=== PATIENT | male | born 1940 ===

== ENCOUNTER 2024-10-29 13:47 | Inpatient (IN) | payer OTHER, MEDICARE ==
[2024-10-30] MEDS: HEPARIN SOD,PORK IN 0.45% NACL 25,000 UNIT in 0.45% NACL 1 250ML.BAG IV SCH (00:14)
[2024-10-30 00:49] LABS: Basophils # (A) 0.06 10*3/uL (0.00-0.10); Basophils % (A) 0.9 %; Eosinophils # (A) 0.03 10*3/uL (0.04-0.35); Eosinophils % (A) 0.5 %; HCT 42.6 % (39.6-50.0); HGB 14.2 g/dL (13.0-17.0); Lymphocytes # (A) 2.88 10*3/uL (0.90-5.00); Lymphocytes % (A) 44.6 %; MCH 31.4 pg (27.0-32.0); MCHC 33.3 g/dL (32.0-37.0); MCV 94.2 fL (80.0-97.0); Mean Platelet Volume 10.1 fL (9.5-12.2); Monocytes # (A) 0.54 10*3/uL (0.20-1.00); Monocytes % (A) 8.4 %; Neutrophils # (A) 2.94 10*3/uL (1.80-7.70); Neutrophils % (A) 45.4 %; Platelet Count 177 10*3/uL (140-440); RBC 4.52 10*6/uL (4.40-5.60); RDW 14.7 % (11.5-14.5); WBC 6.46 10*3/uL (4.50-10.00)
[2024-10-30 01:05] LABS: Partial Thromboplastin Time 34.8 sec (22.0-30.0); Prothrombin Time 11.4 sec (10.0-12.5)
[2024-10-30 01:07] LABS: African American GFR (CKD) 49 (>60 ml/min/1.73 sqM); Anion Gap 7 mmol/L; Blood Urea Nitrogen 46 mg/dL (9-20); Carbon Dioxide 29 mmol/L (22-30); Chloride 95 mmol/L (98-107); Glucose 101 mg/dL (74-99); Non-African American GFR(CKD) 42 (>60 ml/min/1.73 sqM); Potassium 4.5 mmol/L (3.5-5.1); Sodium 131 mmol/L (137-145)
[2024-10-30] MEDS: HEPARIN SODIUM 1,000 UN/ML (10ML VL) IV PRN (01:32)
--- NOTE | 2024-10-30 02:32 | P.HPIM ---
History of Present Illness H&P Date: 10/30/24 Chief Complaint: NSTEMI The patient is a 84-year-old male with history of coronary disease status post [place] patient states in his 40s, diabetes type 2 he states he does not take any medications for this, hypertension who was hospitalized at [facility] on Tuesday because he developed chest pain. The patient states he had a workup there that showed he had a heart attack. The patient's assurance senior manager requested transfer for continuity of care. The patient is currently on a heparin drip. Patient did not arrive with records. The patient denies any chest pain or shortness of luigi th any nausea or vomiting Review of Systems Cardiovascular: Reports chest pain Past Medical History Past Medical History: Cancer, Heart Failure, Diabetes Mellitus, Hearing Disorder / Deafness, Hyperlipidemia, Hypertension, Myocardial Infarction ([place]), Skin Disorder Additional Past Medical History / Comment(s): Skin cancer 70s, leukemia, Last Myocardial Infarction Date:: 10/26/2024 History of Any Multi-Drug Resistant Organisms: None Reported Past Surgical History: Pacemaker Additional Past Surgical History / Comment(s): kidney removal, bladder cancer removed spots, pacer since age 46 Past Anesthesia/Blood Transfusion Reactions: Unable to Obtain Type of Cardiac Device: Unknown Device Placement Date:: 2023 Past Psychological History: No Psychological Hx Reported Smoking Status: Former smoker Past Alcohol Use History: None Reported Past Drug Use History: None Reported Medications and Allergies Allergies Allergy/AdvReac Type Severity Reaction Status Date / Time No Known Allergies Allergy Verified 10/29/24 23:37 Physical Exam Vitals: Vital Signs Temp Pulse Resp BP Pulse Ox 10/30/24 01:22 60 16 10/29/24 23:00 98.6 F 60 16 138/70 95 10/29/24 22:03 98.3 F 65 16 147/75 95 Intake and Output 10/29/24 10/29/24 10/30/24 14:59 22:59 06:59 Intake Total 12.596 Output Total 475 Balance -462.404 Intake: Intake, IV Titration 12.596 Amount Heparin Sod,Pork in 0.45% 12.596 NaCl 25,000 unit In 0.45 % NaCl 1 250ml.bag @ 12 UNITS/KG/HR 9.689 mls/hr IV .Q24H [facility] Rx#: [id number] Output: Urine 475 Other: Voiding Method Indwelling Catheter Weight 80.739 kg - Constitutional General appearance: no acute distress - Respiratory Respiratory: bilateral: diminished, wheezing - Cardiovascular Rhythm: regular - Gastrointestinal General gastrointestinal: normal bowel sounds - Integumentary Integumentary: normal - Musculoskeletal Musculoskeletal: strength equal bilaterally - Psychiatric Psychiatric: A&O x's 3 Results CBC & Chem 7: 10/30/24 00:11 10/30/24 00:11 Labs: Abnormal Lab Results - Last 24 Hours (Table) 10/30/24 10/30/24 10/30/24 Range/Units 00:11 00:11 00:11 Eosinophils # 0.03 L (0.04-0.35) 10*3/uL APTT 34.8 H (22.0-30.0) sec Sodium 131 L (137-145) mmol/L Chloride 95 L (98-107) mmol/L BUN 46 H (9-20) mg/dL Creatinine 1.48 H (0.66-1.25) mg/dL Glucose 101 H (74-99) mg/dL Thrombosis Risk Factor Assmnt - Choose All That Apply Each Factor Represents 1 point: Acute [place] Each Risk Factor Represents 3 Points: Age 75 years or older Thrombosis Risk Factor Assessment Total Risk Factor Score: 4 Thrombosis Risk Factor Assessment Level: Moderate Risk Assessment and Plan (1) NSTEMI (non-ST elevated myocardial infarction) Narrative/Plan: Cardiology consult keep patient n.p.o., morphine oxygen nitro aspirin, continue heparin drip Current Visit: Yes Status: Acute Code(s): I21.4 - NON-ST ELEVATION (NSTEMI) MYOCARDIAL INFARCTION SNOMED Code(s): 22781859 (2) Diabetes Narrative/Plan: Patient states he does not take any medications for his diabetes, sliding scale coverage Current Visit: Yes Status: Acute Code(s): E11.9 - TYPE 2 DIABETES MELLITUS WITHOUT COMPLICATIONS SNOMED Code(s): 51474400 (3) HTN (hypertension) Narrative/Plan: Continue heparin tension meds once med list is obtained, titrate as needed Current Visit: Yes Status: Acute Code(s): I10 - ESSENTIAL (PRIMARY) HYPER TENSION SNOMED Code(s): 57794847 (4) HLD (hyperlipidemia) Narrative/Plan: Check lipid panel, statin as needed Current Visit: Yes Status: Acute Code(s): E78.5 - HYPERLIPIDEMIA, UNSPECIFIED SNOMED Code(s): 69789725 Plan: Obtain records from prior hospital, home meds reconciled once obtained,, pain control, heparin drip, morphine oxygen nitro aspirin, monitor on telemetry
[2024-10-30] MEDS: ASPIRIN 81 MG PO SCH (08:10)
[2024-10-30] MEDS: FUROSEMIDE 10 MG/ML 4 ML VIAL IV SCH (08:10)
[2024-10-30] MEDS ORDERED: DEXTROSE 50% SYRINGE 50 ML IVP PRN ×2 (08:41)
--- NOTE | 2024-10-30 09:41 | XR ---
EXAMINATION TYPE: XR chest 1V portable DATE OF EXAM: 10/30/2024 9:09 AM COMPARISON: None CLINICAL INDICATION: Male, 84 years old with history of NSTEMI,; TECHNIQUE: XR chest 1V portable Frontal view of the chest. FINDINGS: Lungs/Pleura: There is no evidence of pleural effusion, focal consolidation, or pneumothorax. Pulmonary vascularity: Mild pulmonary vascular congestion. Heart/mediastinum: Cardiomediastinal silhouette is unremarkable. Two lead cardiac conduction device o verlying the right hemithorax with lead tips projecting over the right ventricle and right atrium. Musculoskeletal: No acute osseous pathology. Other findings: None IMPRESSION: Mild pulmonary edema, otherwise No acute cardiopulmonary disease/process. [facility], , 10/30/2024 9:38 AM
[2024-10-30] MEDS ORDERED: ARTIFICIAL TEARS OINTMENT 3.5 GM TUBE BOTH EYES PRN (11:00)
[2024-10-30 11:06] LABS: Glucose,Whole Blood 110 mg/dL (70-110)
[2024-10-30] MEDS: INSULIN LISPRO (HumaLOG) 100 UNIT/ML 10 mL VL SQ SCH (11:08)
--- NOTE | 2024-10-30 11:11 | P.PN ---
Subjective Progress Note Date: 10/30/24 Hospital course: Patient is a pleasant 84-year-old male with a past medical history of CAD, hypertension, hyperlipidemia, type 2 diabetes mellitus, bladder cancer status post surgical partial removal/tumor resection, BPH and leukemia. Patient was transferred to our facility from [facility] secondary to concerns of NSTEMI. Patient arrived to our facility on heparin infusion however transfer records were not available at time of arrival. Upon arrival to our facility, patient was transferred to room 359. Vital signs on arrival show blood pressure 147/75, heart rate 65, respiratory rate 16, temp 98.3 F, and SpO2 of 95% on 3 L. Labs were completed and reviewed. CBC unremarkable. Coagulation profile showing a subtherapeutic PTT of 34.8 with goal therapeutic range of 45 to 79 seconds. BMP showing sodium of 131, chloride of 95, BUN 46, creatinine 1.48, and GFR 42. Blood glucose was 101.Troponin 2.340. proBNP 7310. EKG completed showing sinus bradycardia at 54 bpm. Chest x-ray completed showing mild pulmonary edema. Patient admitted under our services with consultation to cardiology. Physical exam: Patient seen and evaluated at the bedside. He reports he initially presented to [facility] secondary to shortness of breath. Patient reports that shortness of breath has significantly improved. He denies having any chest pain, palpitations, cough or congestion, or experiencing any numbness/tingling/weakness in his extremities. Patient does have Bennett catheter in place from previous facility secondary to longstanding history of urinary retention and need for accurate I's and O's. Vital signs reviewed and stable. General: Nontoxic, no distress and appears stated age. Derm: Skin warm and dry, normal coloration for ethnicity. Head: Atraumatic, normocephalic and symmetric. Eyes: EOM's intact, no lid lag, and anicteric sclera Mouth: no lip lesions, mucus membranes moist Cardiovascular: regular rate and rhythm with normal S1S2, soft systolic murmur, positive posterior tibial pulses bilaterally, and cap refill < 2 seconds. Lungs: Respirations even, regular, and unlabored on 2 L O2 via nasal cannula. Lungs slightly diminished breath soft basilar crackles worse on left, no rhonchi, no rales, no wheezing, and no accessory muscle usage. Abdominal: soft, nontender to palpation, no guarding, no appreciable organomegaly. Bennett catheter in place Ext: ROM intact. No gross muscle atrophy, scant lower extremity edema, no contractures Neuro: Speech clear, face symmetrical and CN II-XII grossly intact with no noted focal neuro deficits Psych: Alert and oriented to person, place, time, and situation. Appropriate and pleasant affect. Assessment and Plan of Care: NSTEMI Mild CHF exacerbation, unknown type pending completion of echocardiogram CAD Hypertension Hyperlipidemia -Cardiology consulted, appreciate recommendations -Telemetry monitoring -Continue low intensity heparin infusion with close monitoring of PTT every 6 hours for goal therapeutic range of 45 to 79 seconds. - Troponin 2.340. proBNP 7310 -Cardiac diet, NPO at midnight -Aspirin 81 mg daily, atorvastatin 40 mg nightly, amlodipine 2.5 mg daily, metoprolol 12.5 mg twice daily with parameters placed to hold for heart rate less than 60. -Lipid profile with a.m. labs. -Echocardiogram Acute kidney injury, possible underlying chronic kidney disease - Patient requiring IV Lasix, Cardiology also starting patient on gentle IV fluids with 0.9% NS at 100 cc/hour. We will monitor renal function closely with repeat AM labs and avoid additional nephrotoxic medications. Type II ohu-gizkyja-odmjneoru diabetes mellitus -Patient reports diet controlled, currently blood glucose 101. Will place patient on glycemic protocol with NovoLog sliding scale. Bladder cancer status post surgical partial remover/tumor resection BPH -Continue Proscar 5 mg nightly and Flomax 0.8 mg nightly. Data and imaging reviewed: -Troponin 2.340. proBNP 7310. EKG completed showing sinus bradycardia at 54 bpm. -Chest x-ray was ordered and completed showing mild pulmonary edema. -Vital signs reviewed. Blood pressure 108/57, heart rate 51, respiratory rate 16, temp 97.9 F, and SpO2 of 97% on 2 L. CODE STATUS: Full code DVT prophylaxis: Heparin infusion for treatment of NSTEMI Discussed with: Patient and RN Anticipated discharge date: Pending clinical course Anticipated discharge place: Pending clinical course, likely home Patient was seen independently by Nurse Pracitioner. This document was prepared using [employer] dictation software. Please allow for errors in senior planning analyst, while rare they do occur. Rainer Grace NP rendered care for this patient independently, reviewed the findings and plan as documented in the note above and agree with plan. I did not physically speak with or examine the patient on this date. Objective - Vital Signs Vital signs: Vital Signs Temp 97.9 F 10/30/24 07:56 Pulse 51 L 10/30/24 07:56 Resp 16 10/30/24 07:56 BP 108/57 10/30/24 07:56 Pulse Ox 97 10/30/24 07:56 FiO2 Intake & Output 10/29/24 10/30/24 10/30/24 18:59 06:59 18:59 Intake Total 12.596 Output Total 475 Balance -462.404 Weight 74 kg Intake: Intake, IV Titration 12.596 Amount Heparin Sod,Pork in 0.45% 12.596 NaCl 25,000 unit In 0.45 % NaCl 1 250ml.bag @ 12 UNITS/KG/HR 9.689 mls/hr IV .Q24H [facility] Rx#: [id number] Output: Urine 475 Other: Voiding Method Indwelling Catheter - Labs CBC & Chem 7: 10/30/24 00:11 10/30/24 00:11 Labs: Abnormal Lab Results - Last 24 Hours (Table) 10/30/24 10/30/24 10/30/24 Range/Units 00:11 00:11 00:11 Eosinophils # 0.03 L (0.04-0.35) 10*3/uL APTT 34.8 H (22.0-30.0) sec Sodium 131 L (137-145) mmol/L Chloride 95 L (98-107) mmol/L BUN 46 H (9-20) mg/dL Creatinine 1.48 H (0.66-1.25) mg/dL Glucose 101 H (74-99) mg/dL 10/30/24 Range/Units 06:45 Eosinophils # (0.04-0.35) 10*3/uL APTT 58.2 H (22.0-30.0) sec Sodium (137-145) mmol/L Chloride (98-107) mmol/L BUN (9-20) mg/dL Creatinine (0.66-1.25) mg/dL Glucose (74-99) mg/dL
[2024-10-30] MEDS ORDERED: SODIUM CHLORIDE 0.9% 1,000 ML IV SCH (11:15)
[2024-10-30] MEDS: SODIUM CHLORIDE 0.9% 1,000 ML IV SCH (11:27)
--- NOTE | 2024-10-30 12:56 | P.CRDCN ---
History of Present Illness Consult date: 10/30/24 Requesting physician: Kacey Walker Reason for Consult (text): elevated troponins Chief complaint: Chest pain History of present illness: Patient is a 84 year old male with past medical history of diabetes mellitus, hyperlipidemia, hypertension presented with chest pain. Patient was hospitalized at [facility] on Tuesday with chest pain. Patient then had workup that showed hs-cTnT of 176 and he was transferred to our facility secondary to concerns of NSTEMI. The patient's bark scaler requested transfer for continuity of care. Patient had echocardiogram done at [facility] on 10/27/24 that showed left ventricular systolic function is normal with EF 50 to 55%, left ventricular diastolic function is normal, mildly dilated right atrium, moderate aortic stenosis with mean gradient 21 mm Hg, mild MR, mild TR, mild pulmonary hypertension, small pericardial effusion near the right side of the heart, pacemaker visualized in the right ventricle. Patient also had a CT angio chest that did not show evidence of pulmonary embolism, no aortic aneurysm or dissection, showed diffuse lymphadenopathy which is nonspecific to the degree of lymphadenopathy may suggest a more systemic process such as lymphoma/lymphoproliferative disorder in the appropriate setting, it also showed vascular congestion and infectious superimposed airspace disease cannot be completely excluded. Patient has sick sinus syndrome and has a permanent pacemaker that was checked at the last office visit on 09/04/24 and was functioning normally. Patient had a Lexiscan stress test on 08/15/24 that showed normal myocardial perfusion and function and echocardiogram on 08/13/24 that showed normal LV systolic function with moderate to severe aortic stenosis, mild aortic regurgitation and mild to moderate mitral regurgitation. Denies fever, chills, cough, palpitations,nausea, vomiting, hematuria, dysuria, hematochezia, melena, headache, slurred speech, numbness, tingling, dizziness, lightheadedness, blurred vision, double vision. Vitals T 97.9 F, [place] 57 bpm, RR 20, BP 108/59, saturation 93% on 2 L oxygen via nasal cannula EKG independently interpreted as sinus bradycardia, rate 54 bpm, QTc 406 ms Chest x-ray shows no acute cardiopulmonary disease/process Labs show WBC 6.46, hemoglobin 14.2, platelet count 177, INR 1.0, sodium 131, potassium 4.5, creatinine 1.48 Troponin I 2.340 Review of systems: Pertinent positives and negatives as discussed in HPI, a complete review of systems was performed and all other systems are negative. Physical examination: Vital signs reviewed GENERAL: This is a 84 -year-old male in no acute distress HEENT: Head is atraumatic, normocephalic. Pupils equal, round. Sclerae is anicteric NECK: Supple, No JVD, No carotid bruit LUNGS: Clear to auscultation, No wheezes or rhonchi, No intercostal retractions HEART: Regular rate and rhythm, no murmur or gallop or rub ABDOMEN: Soft No tenderness EXTREMITIES: Left shoulder tenderness, No pedal edema, No calf tenderness. NEUROLOGICAL: Patient is awake and alert Assessment: NSTEMI Sick sinus syndrome S/p permanent pacemaker placement Nonrheumatic Aortic valve stenosis Congestive Heart Failure, EF 50-55% Hypertension Diabetes mellitus Hyperlipidemia History of CLL Left renal carcinoma S/p nephrectomy Bladder cancer status post surgical partial remover/tumor resection BPH Plan: Continue heparin drip Obtain Echocardiogram, lipid panel Decrease Lasix to 40 mg IV daily Resume home cardiac medications Started on 0.9 normal saline at 100 ml/hr Continue telemetry monitoring Dictation was produced using [employer] dictation software. please excuse any grammatical, word or spelling errors. Temitope Claire MD PGY-1 IM Past Medical History Past Medical History: Cancer, Heart Failure, Diabetes Mellitus, Hearing Disorder / Deafness, Hyperlipidemia, Hypertension, Myocardial Infarction ([place]), Skin Disorder Additional Past Medical History / Comment(s): Skin cancer 70s, leukemia, Last Myocardial Infarction Date:: 10/26/2024 History of Any Multi-Drug Resistant Organisms: None Reported Past Surgical History: Pacemaker Additional Past Surgical History / Comment(s): kidney removal, bladder cancer removed spots, pacer since age 46 Past Anesthesia/Blood Transfusion Reactions: Unable to Obtain Type of Cardiac Device: Unknown Device Placement Date:: 2023 Past Psychological History: No Psychological Hx Reported Smoking Status: Former smoker Past Alcohol Use History: None Reported Past Drug Use History: None Reported Medications and Allergies Home Medications Medication Instructions Recorded Confirmed Type Aspirin 81 mg PO DAILY 10/30/24 10/30/24 History Cyanocobalamin (Vitamin B-12) 1,000 mcg PO DAILY 10/30/24 10/30/24 History [Vitamin B-12] Finasteride [Proscar] 5 mg PO HS 10/30/24 10/30/24 History Metoprolol Tartrate [Lopressor] 12.5 mg PO BID 10/30/24 10/30/24 History Mineral Oil/Petrolatum,White 1 applic BOTH EYES BID PRN 10/30/24 10/30/24 History [Refresh P.m. Ointment P-F] Rosuvastatin [Crestor] 10 mg PO DAILY 10/30/24 10/30/24 History Tamsulosin HCl [Flomax] 0.8 mg PO HS 10/30/24 10/30/24 History Tiotropium Br/Olodaterol HCl 2 puff INHALATION RT-DAILY 10/30/24 10/30/24 Hi story [Stiolto Respimat Inhaler (60)] amLODIPine [Norvasc] 2.5 mg PO DAILY 10/30/24 10/30/24 History Allergies Allergy/AdvReac Type Severity Reaction Status Date / Time No Known Allergies Allergy Verified 10/30/24 08:22 Physical Exam Vitals: Vital Signs Temp Pulse Resp BP Pulse Ox 10/30/24 11:25 57 L 20 108/59 93 L 10/30/24 07:56 97.9 F 51 L 16 108/57 97 10/30/24 03:31 98.3 F 59 L 16 118/64 97 10/30/24 01:22 60 16 10/29/24 23:00 98.6 F 60 16 138/70 95 10/29/24 22:03 98.3 F 65 16 147/75 95 Intake and Output 10/29/24 10/30/24 10/30/24 22:59 06:59 14:59 Intake Total 12.596 Output Total 475 1900 Balance -462.404 -1900 Intake: Intake, IV Titration 12.596 Amount Heparin Sod,Pork in 0.45% 12.596 NaCl 25,000 unit In 0.45 % NaCl 1 250ml.bag @ 12 UNITS/KG/HR 9.689 mls/hr IV .Q24H [facility] Rx#: [id number] Output: Urine 475 1900 Other: Voiding Method Indwelling Catheter Indwelling Catheter Weight 80.739 kg 74 kg Results 10/30/24 00:11 10/30/24 00:11 Cardiac Enzymes 10/30/24 Range/Units 00:11 Troponin I 2.340 H* (0.000-0.034) ng/mL Coagulation 10/30/24 10/30/24 Range/Units 00:11 06:45 PT 11.4 (10.0-12.5) sec APTT 34.8 H 58.2 H (22.0-30.0) sec CBC 10/30/24 Range/Units 00:11 WBC 6.46 (4.50-10.00) 10*3/uL RBC 4.52 (4.40-5.60) 10*6/uL Hgb 14.2 (13.0-17.0) g/dL Hct 42.6 (39.6-50.0) % Plt Count 177 (140-440) 10*3/uL Comprehensive Metabolic Panel 10/30/24 Range/Units 00:11 Sodium 131 L (137-145) mmol/L Potassium 4.5 (3.5-5.1) mmol/L Chloride 95 L (98-107) mmol/L Carbon Dioxide 29 (22-30) mmol/L BUN 46 H (9-20) mg/dL Creatinine 1.48 H (0.66-1.25) mg/dL Glucose 101 H (74-99) mg/dL Calcium 9.0 (8.4-10.2) mg/dL Current Medications Generic Name Dose Route Start Last Admin Trade Name Freq PRN Reason Stop Dose Admin Albuterol/Ipratropium 3 ml 10/30/24 05:45 Ipratropium-Albuterol 3 Ml Neb INHALATION RT-Q4H PRN Shortness Of Breath Or Wheezing Amlodipine Besylate 2.5 mg 10/31/24 09:00 Amlodipine 2.5 Mg Tab PO DAILY LEONARDO Aspirin 81 mg 10/30/24 09:00 10/30/24 08:10 Aspirin 81 Mg PO 81 mg DAILY LEONARDO Administration Atorvastatin Calcium 40 mg 10/30/24 21:00 Atorvastatin 40 Mg Tab PO HS LEONARDO Dextrose/Water 25 ml 10/30/24 08:41 Dextrose 50% Syringe 50 Ml IVP PER PROTOCOL PRN Hypoglycemia Protocol Dextrose/Water 50 ml 10/30/24 08:41 Dextrose 50% Syringe 50 Ml IVP PER PROTOCOL PRN Hypoglycemia Protocol Finasteride 5 mg 10/30/24 21:00 Finasteride 5 Mg Tab PO HS LEONARDO Formoterol Fumarate 20 mcg 10/30/24 20:00 Formoterol Fumarate 20 Mcg/2 Ml Nebu INHALATION RT-BID [facility] Furosemide 40 mg 10/31/24 09:00 Furosemide 10 Mg/Ml 4 Ml Vial IV DAILY [facility] Heparin Sodium (Porcine) 0 unit 10/29/24 23:46 10/30/24 01:32 Heparin Sodium 1,000 Un/Ml (10ml Vl) IV 2,018 unit PER PROTOCOL PRN Administration Low PTT Protocol Heparin Sodium/Sodium Chloride 250 mls @ 9.689 mls/hr 10/29/24 23:45 10/30/24 01:32 25,000 unit/ Sodium Chloride IV 14 units/kg/hr .Q24H LEONARDO 11.303 mls/hr Titration Protocol 12 UNITS/KG/HR Sodium Chloride 1,000 mls @ 100 mls/hr 10/30/24 10:15 10/30/24 11:27 Saline 0.9% IV 100 mls/hr .Q10H LEONARDO Administration Insulin Human Lispro 0 unit 10/30/24 12:30 10/30/24 11:08 Insulin Lispro (Humalog) 100 Unit/Ml 10 Ml Vl SQ Not Given ACHS [facility] Protocol Metoprolol Tartrate 12.5 mg 10/30/24 21:00 Metoprolol Tartrate 12.5 Mg Tab PO BID [facility] Multi-Ingred Cream/Lotion/Oil/Oint 1 applic 10/30/24 11:00 Artificial Tears Ointment 3.5 Gm Tube BOTH EYES BID PRN DRY EYES Tamsulosin HCl 0.8 mg 10/30/24 21:00 Tamsulosin 0.4 Mg Cap.Er.24h PO HS [facility] Tiotropium [place] 2 puff 10/30/24 12:00 Tiotropium 2.5 Mcg Inhaler INHALATION RT-DAILY [facility] Intake and Output 10/29/24 10/30/24 10/30/24 22:59 06:59 14:59 Intake Total 12.596 Output Total 475 1900 Balance -462.404 -1900 Intake: Intake, IV Titration 12.596 Amount Heparin Sod,Pork in 0.45% 12.596 NaCl 25,000 unit In 0.45 % NaCl 1 250ml.bag @ 12 UNITS/KG/HR 9.689 mls/hr IV .Q24H [facility] Rx#: [id number] Output: Urine 475 1900 Other: Voiding Method Indwelling Catheter Indwelling Catheter Weight 80.739 kg 74 kg 10/30/24 00:11 10/30/24 00:11
[2024-10-30 16:32] LABS: Glucose,Whole Blood 183 mg/dL (70-110)
[2024-10-30] MEDS: TIOTROPIUM 2.5 MCG INHALER INHALATION SCH (16:41)
[2024-10-30 19:57] LABS: Glucose,Whole Blood 136 mg/dL (70-110)
[2024-10-30] MEDS: METOPROLOL TARTRATE 12.5 MG TAB PO SCH (20:05)
[2024-10-30] MEDS: ATORVASTATIN 40 MG TAB PO SCH (20:05)
[2024-10-30] MEDS: FINASTERIDE 5 MG TAB PO SCH (20:05)
[2024-10-30] MEDS: TAMSULOSIN 0.4 MG CAP.ER.24H PO SCH (20:05)
[2024-10-30] MEDS: FORMOTEROL FUMARATE 20 MCG/2 ML NEBU INHALATION SCH (21:35)
[2024-10-31 06:09] LABS: Glucose,Whole Blood 118 mg/dL (70-110)
[2024-10-31 07:03] LABS: HCT 36.6 % (39.6-50.0); HGB 12.3 g/dL (13.0-17.0); MCH 31.3 pg (27.0-32.0); MCHC 33.6 g/dL (32.0-37.0); MCV 93.1 fL (80.0-97.0); Mean Platelet Volume 9.6 fL (9.5-12.2); Platelet Count 147 10*3/uL (140-440); RBC 3.93 10*6/uL (4.40-5.60); RDW 14.9 % (11.5-14.5)
--- NOTE | 2024-10-31 07:09 | CA ---
Transthoracic Echo Report Name: Arnie Navarro Age: 84 Gender: M : 1940 Exam Date: 10/30/2024 13:49 Exam Location: [place] [facility] Ht (in): 71 Wt (lb): 163 Ordering Physician: Rainer Grace Attending/Referring Phys: Lead Applications Developer Teressa Alves RDCS Procedure CPT: Indications: nstemi Cardiac Hx: Technical Quality: Good Contrast 1: Total Dose (mL): Contrast 2: Total Dose (mL): MEASUREMENTS (Male / Female) Normal Values 2D ECHO LV Diastolic Diameter PLAX 3.5 cm 4.2 - 5.9 / 3.9 - 5.3 cm LV Systolic Diameter PLAX 2.6 cm IVS Diastolic Thickness 1.0 cm 0.6 - 1.0 / 0.6 - 0.9 cm LVPW Diastolic Thickness 0.9 cm 0.6 - 1.0 / 0.6 - 0.9 cm LV Relative Wall Thickness 0.5 LVOT Diameter 1.8 cm LV Diastolic Volume MOD BP 101.6 cm??? 67 - 155 / 56 - 104 cm??? LV Systolic Volume MOD BP 41.8 cm??? 22 - 58 / 19 - 49 cm??? LV Ejection Fraction MOD BP 58.9 % >= 55 % LV Cardiac Index MOD BP 1740.6 cm???/min???m??? LV Diastolic Volume MOD 4C 104.9 cm??? LV Systolic Volume MOD 4C 47.4 cm??? LV Ejection Fraction MOD 4C 54.8 % LV Cardiac Index MOD 4C 1671.1 cm???/min???m??? LV Diastolic Length 4C 8.8 cm LV Systolic Length 4C 7.4 cm LV Diastolic Volume MOD 2C 93.6 cm??? LV Systolic Volume MOD 2C 36.0 cm??? LV Ejection Fraction MOD 2C 61.6 % LV Cardiac Index MOD 2C 1676.3 cm???/min???m??? LV Diastolic Length 2C 9.3 cm LV Systolic Length 2C 7.1 cm LA Volume 51.0 cm??? 18 - 58 / 22 - 52 cm??? LA Volume Index 26.5 cm???/m??? 16 - 28 cm???/m??? DOPPLER AV Peak Velocity 306.5 cm/s AV Peak Gradient 37.6 mmHg AV Mean Velocity 211.3 cm/s AV Mean Gradient 19.9 mmHg AV Velocity Time Integral 61.9 cm LVOT Peak Velocity 111.3 cm/s LVOT Peak Gradient 5.0 mmHg LVOT Velocity Time Integral 20.8 cm LVOT Stroke Volume 51.3 cm??? LVOT Stroke Volume Index 26.5 ml/m??? LVOT Cardiac Index 1493.0 cm???/min???m??? AV Area Cont Eq vti 0.8 cm??? AV Area Cont Eq pk 0.9 cm??? MV Area PHT 3.0 cm??? Mitral E Point Velocity 69.9 cm/s Mitral A Point Velocity 87.6 cm/s Mitral E to A Ratio 0.8 MV Deceleration Time 249.4 ms TR Peak Velocity 232.7 cm/s TR Peak Gradient 21.7 mmHg Right Atrial Pressure 5.0 mmHg Pulmonary Artery Systolic Pressu 26.7 mmHg Right Ventricular Systolic Press 26.7 mmHg PV Peak Velocity 112.2 cm/s PV Peak Gradient 5.0 mmHg FINDINGS Left Ventricle Left ventricular ejection fraction is estimated at 55-60 %. Left ventricular cavity size normal. Left ventricular wall thickness normal. No obvious regional wall motion abnormalities. Right Ventricle Normal right ventricular size and function. Right ventricular systolic pressure within normal limits. Right Atrium Normal right atrial size. Catheter/pacemaker wire in the right atrial cavity. Left Atrium Normal left atrial size. Mitral Valve Mitral valve thickened. No evidence for mitral valve prolapse. No mitral stenosis. Mild mitral regurgitation.mitral annular calcification. Aortic Valve Aortic valve not well visualized. Moderate aortic stenosis. Mean gradient poor doppler alignment and acoustic windows. No aortic regurgitation. Tricuspid Valve Structurally normal tricuspid valve. No tricuspid stenosis. Mild tricuspid regurgitation. Pulmonic Valve No pulmonic stenosis. No pulmonic regurgitation.pulmonic valve not well visualized. Pericardium No pericardial effusion. Aorta Aortic annulus normal. Ascending aorta not well visualized. CONCLUSIONS Technically difficult study. Normal left ventricular size and systolic function Moderate aortic stenosis with a mean gradient of 21 mmHg Mild mitral and tricuspid regurgitation A wire was noted in the right ventricle Previewed by: Dr. Aleja Morris MD (Electronically Signed) Final Date: 31 October 2024 07:08
[2024-10-31 07:58] LABS: ALT 46 U/L (4-49); AST 61 U/L (17-59); African American GFR (CKD) 59 (>60 ml/min/1.73 sqM); Albumin 2.8 g/dL (3.5-5.0); Alkaline Phosphatase 116 U/L (38-126); Anion Gap 5 mmol/L; Blood Urea Nitrogen 40 mg/dL (9-20); Calcium 8.6 mg/dL (8.4-10.2); Carbon Dioxide 27 mmol/L (22-30); Chloride 103 mmol/L (98-107); Glucose 106 mg/dL (74-99); Non-African American GFR(CKD) 51 (>60 ml/min/1.73 sqM); Sodium 135 mmol/L (137-145); Total Bilirubin 1.2 mg/dL (0.2-1.3); Total Protein 5.6 g/dL (6.3-8.2)
[2024-10-31] MEDS ORDERED: NON FORMULARY DRUG (Tiotropium Br/Olodaterol Hcl [Stiolto Respimat Inhaler (60)] 4 GM Mist INHALATION SCH (08:00)
[2024-10-31] MEDS: FUROSEMIDE 10 MG/ML 4 ML VIAL IV SCH (08:59)
[2024-10-31] MEDS: amLODIPine 2.5 MG TAB PO SCH (08:59)
[2024-10-31] MEDS ORDERED: ALPRAZolam 0.25 MG TAB PO PRN (09:24)
[2024-10-31] MEDS ORDERED: ALPRAZolam 0.5 MG TAB PO PRN (09:24)
[2024-10-31] MEDS ORDERED: NITROGLYCERIN SL TABS 0.4 MG TAB SUBLINGUAL PRN (09:24)
[2024-10-31 10:34] LABS: Chol/HDL Ratio 3.97 Ratio; LDL Cholesterol,Calculated 56.6 mg/dL (0.0-131.0)
[2024-10-31 11:36] LABS: Glucose,Whole Blood 127 mg/dL (70-110)
--- NOTE | 2024-10-31 12:42 | P.PN ---
Subjective Progress Note Date: 10/31/24 Hospital course: Patient is a pleasant 84-year-old male with a past medical history of CAD, sick sinus syndrome status post pacemaker placement, hypertension, hyperlipidemia, type 2 diabetes mellitus, bladder cancer status post surgical partial removal/tumor resection, BPH and leukemia. Patient was transferred to our facility from [facility] secondary to concerns of NSTEMI. Patient arrived to our facility on heparin infusion however transfer records were not available at time of arrival. Upon arrival to our facility, patient was transferred to room 359. Vital signs on arrival show blood pressure 147/75, heart rate 65, respiratory rate 16, temp 98.3 F, and SpO2 of 95% on 3 L. Labs were completed and reviewed. CBC unremarkable. Coagulation profile showing a subtherapeutic PTT of 34.8 with goal therapeutic range of 45 to 79 seconds. BMP showing sodium of 131, chloride of 95, BUN 46, creatinine 1.48, and GFR 42. Blood glucose was 101.Troponin 2.340. proBNP 7310. EKG completed showing sinus bradycardia at 54 bpm. Chest x-ray completed showing mild pulmonary edema. Patient admitted under our services with consultation to cardiology.Echocardiogram revealed a preserved EF of 55 to 60% with moderate aortic stenosis, mild mitral and t ricuspid regurgitation, and pacer wire appropriately in place in right ventricle. Physical exam: Patient seen and evaluated at the bedside. Patient reports feeling well this morning. He reports improvement of shortness of breath and currently denies having any chest pain or complaints. Discussed with patient that cardiology's tentative plan is for cardiac catheterization tomorrow and patient reports understanding and denies having any additional questions, needs, concerns at this time.. Vital signs reviewed and stable. General: Nontoxic, no distress and appears stated age. Derm: Skin warm and dry, normal coloration for ethnicity. Head: Atraumatic, normocephalic and symmetric. Eyes: EOM's intact, no lid lag, and anicteric sclera Mouth: no lip lesions, mucus membranes moist Cardiovascular: regular rate and rhythm with normal S1S2, soft systolic murmur, positive posterior tibial pulses bilaterally, and cap refill < 2 seconds. Lungs: Respirations even, regular, and unlabored on 2 L O2 via nasal cannula. Lungs slightly diminished breath soft basilar crackles worse on left, no rhonchi, no rales, no wheezing, and no accessory muscle usage. Abdominal: soft, nontender to palpation, no guarding, no appreciable org anomegaly. Bennett catheter in place Ext: ROM intact. No gross muscle atrophy, scant lower extremity edema, no contractures Neuro: Speech clear, face symmetrical and CN II-XII grossly intact with no noted focal neuro deficits Psych: Alert and oriented to person, place, time, and situation. Appropriate and pleasant affect. Assessment and Plan of Care: NSTEMI Mild diastolic CHF exacerbation Sick sinus syndrome status post pacemaker placement CAD Hypertension Hyperlipidemia -Cardiology following and discussed plan of care with cardiac POST DOC FELLOWSHIP. Patient to undergo heart catheterization tomorrow. -Telemetry monitoring -Continue low intensity heparin infusion with close monitoring of PTT every 6 hours for goal therapeutic range of 45 to 79 seconds. Currently therapeutic at 51.1 -Continue IV Lasix 40 mg IVP daily with close monitoring of I's and O's. -Troponin 2.340. proBNP 7310 -Cardiac diet, NPO at midnight -Aspirin 81 mg daily, atorvastatin 40 mg nightly, amlodipine 2.5 mg daily, metoprolol 12.5 mg twice daily with parameters placed to hold for heart rate less than 60. -Lipid profile with a.m. labs. -Echocardiogram revealed a preserved EF of 55 to 60% with moderate aortic stenosis, mild mitral and tricuspid regurgitation, and pacer wire appropriately in place in right ventricle. Acute kidney injury, possible underlying chronic kidney disease - Patient requiring IV Lasix, Cardiology also starting patient on gentle IV fluids with 0.9% NS at 100 cc/hour. We will monitor renal function closely with repeat AM labs and avoid additional nephrotoxic medications. Type II [id number] diabetes mellitus -Hemoglobin A1c 5.8%. Bladder cancer status post surgical partial remover/tumor resection BPH -Continue Proscar 5 mg nightly and Flomax 0.8 mg nightly. Data and imaging reviewed: -Morning labs reviewed. CBC showing stable normocytic anemia with hemoglobin of 12.3. PTT therapeutic at 51.1. BMP showing improvement of hyponatremia with sodium of 135 and improvement of RAKESH with BUN of 40, creatinine 1.26, GFR 51. Blood glucose was 106. Hemoglobin A1c 5.8%. Liver profile showing slightly elevated AST of 61 otherwise normal findings. Albumin was low at 2.8. Lipid profile unremarkable with the exception of low HDL of 28.20. -Echocardiogram revealed a preserved EF of 55 to 60% with moderate aortic stenosis, mild mitral and tricuspid regurgitation, and pacer wire appropriately in place in right ventricle. -Vital signs reviewed. Blood pressure 119/69, heart rate 63, respiratory rate 16, temp 97.5 F, and SpO2 of 95% on 2 L. CODE STATUS: Full code DVT prophylaxis: Heparin infusion for treatment of NSTEMI Discussed with: Patient, cardiology POST DOC FELLOWSHIP and RN Anticipated discharge date: Pending clinical course Anticipated discharge place: Pending clinical course, likely home Patient was seen independently by Nurse Pracitioner. This document was prepared using [employer] dictation software. Please allow for errors in due diligence coordinator, while rare they do occur. Rainer Grace NP rendered care for this patient independently, reviewed the findings and plan as documented in the note above and agree with plan. I did not physically speak with or examine the patient on this date. Objective - Vital Signs Vital signs: Vital Signs Temp 98.0 F 10/31/24 04:00 Pulse 54 L 10/31/24 04:00 Resp 19 10/31/24 04:00 BP 111/64 10/31/24 04:00 Pulse Ox 93 L 10/31/24 04:00 FiO2 Intake & Output 10/30/24 10/31/24 10/31/24 18:59 06:59 18:59 Intake Total 360 210.236 Output Total 2800 900 Balance -2440 -689.764 Weight 73.6 kg Intake: Intake, IV Titration 210.236 Amount Heparin Sod,Pork in 0.45% 210.236 NaCl 25,000 unit In 0.45 % NaCl 1 250ml.bag @ 12 UNITS/KG/HR 9.689 mls/hr IV .Q24H [facility] Rx#: [id number] Oral 360 Output: Urine 2800 900 Other: Voiding Method Indwelling Catheter Indwelling Catheter # Voids 1 - Labs CBC & Chem 7: 10/31/24 06:16 10/31/24 06:16 Labs: Abnormal Lab Results - Last 24 Hours (Table) 10/30/24 10/30/24 10/30/24 Range/Units 00:11 16:30 19:55 RBC (4.40-5.60) 10*6/uL Hgb (13.0-17.0) g/dL Hct (39.6-50.0) % APTT (22.0-30.0) sec Sodium (137-145) mmol/L BUN (9-20) mg/dL Creatinine (0.66-1.25) mg/dL Glucose (74-99) mg/dL POC Glucose (mg/dL) 183 H 136 H (70-110) mg/dL AST (17-59) U/L Troponin I 2.340 H* (0.000-0.034) ng/mL Total Protein (6.3-8.2) g/dL Albumin (3.5-5.0) g/dL 10/31/24 10/31/24 10/31/24 Range/Units 06:08 06:16 06:16 RBC 3.93 L (4.40-5.60) 10*6/uL Hgb 12.3 L (13.0-17.0) g/dL Hct 36.6 L (39.6-50.0) % APTT (22.0-30.0) sec Sodium 135 L (137-145) mmol/L BUN 40 H (9-20) mg/dL Creatinine 1.26 H (0.66-1.25) mg/dL Glucose 106 H (74-99) mg/dL POC Glucose (mg/dL) 118 H (70-110) mg/dL AST 61 H (17-59) U/L Troponin I (0.000-0.034) ng/mL Total Protein 5.6 L (6.3-8.2) g/dL Albumin 2.8 L (3.5-5.0) g/dL 10/31/24 Range/Units 06:16 RBC (4.40-5.60) 10*6/uL Hgb (13.0-17.0) g/dL Hct (39.6-50.0) % APTT 51.1 H (22.0-30.0) sec Sodium (137-145) mmol/L BUN (9-20) mg/dL Creatinine (0.66-1.25) mg/dL Glucose (74-99) mg/dL POC Glucose (mg/dL) (70-110) mg/dL AST (17-59) U/L Troponin I (0.000-0.034) ng/mL Total Protein (6.3-8.2) g/dL Albumin (3.5-5.0) g/dL
--- NOTE | 2024-10-31 13:42 | P.PN ---
Subjective Progress Note Date: 10/31/24 Requesting physician: Kcaey Walker Reason for Consult (text): elevated troponins Chief complaint: Chest pain History of present illness: Patient is a 84 year old male with past medical history of diabetes mellitus, hyperlipidemia, hypertension presented with chest pain. Patient was hospitalized at [facility] on Tuesday with chest pain. Patient then had workup that showed hs-cTnT of 176 and he was transferred to our facility secondary to concerns of NSTEMI. 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 Patient had echocardiogram done at [facility] on 10/27/24 that showed left ventricular systolic function is normal with EF 50 to 55%, left ventricular diastolic function is normal, mildly dilated right atrium, moderate aortic stenosis with mean gradient 21 mm Hg, mild MR, mild TR, mild pulmonary hypertension, small pericardial effusion near the right side of the heart, pacemaker visualized in the right ventricle. Patient also had a CT angio chest that did not show evidence of pulmonary embolism, no aortic aneurysm or dissection, showed diffuse lymphadenopathy which is nonspecific to the degree of lymphadenopathy may suggest a more systemic process such as lymphoma/lymphoproliferative disorder in the appropriate setting, it also showed vascular congestion and infectious superimposed airspace disease cannot be completely excluded. Patient has sick sinus syndrome and has a permanent pacemaker that was checked at the last office visit on 09/04/24 and was functioning normally. Patient had a Lexiscan stress test on 08/15/24 that showed normal myocardial perfusion and function and echocardiogram on 08/13/24 that showed normal LV systolic function with moderate to severe aortic stenosis, mild aortic regurgitation and mild to moderate mitral regurgitation. Denies fever, chills, cough, palpitations,nausea, vomiting, hematuria, dysuria, hematochezia, melena, headache, slurred speech, numbness, tingling, dizziness, lightheadedness, blurred vision, double vision. Vitals T 97.9 F, TX 57 bpm, RR 20, BP 108/59, saturation 93% on 2 L oxygen via nasal cannula EKG independently interpreted as sinus bradycardia, rate 54 bpm, QTc 406 ms Chest x-ray shows no acute cardiopulmonary disease/process Labs show WBC 6.46, hemoglobin 14.2, platelet count 177, INR 1.0, sodium 131, potassium 4.5, creatinine 1.48 Troponin I 2.340 10/31 Patient seen and examined. Patient has been maintained on heparin drip. Renal function is improving with BUN of 40 and creatinine 1.26. We decreased IV Lasix to daily and started him on IV fluids at 100 cc/h in preparation for cardiac catheterization. Blood pressure 119/69, heart rate 63, pulse ox 95% on 2 L nasal cannula. Echocardiogram reveals EF of 55-60, technically difficult study. Moderate aortic stenosis with mean gradient of 21 mmHg. Mild mitral and tricuspid regurgitation. Wire noted in the right ventricle. Physical examination: Vital signs reviewed GENERAL: This is a 84 -year-old male in no acute distress HEENT: Head is atraumatic, normocephalic. Pupils equal, round. Sclerae is anicteric NECK: Supple, No JVD, No carotid bruit LUNGS: Clear to auscultation, No wheezes or rhonchi, No intercostal retractions HEART: Regular rate and rhythm, no murmur or gallop or rub ABDOMEN: Soft No tenderness EXTREMITIES: Left shoulder tenderness, No pedal edema, No calf tenderness. NEUROLOGICAL: Patient is awake and alert Assessment: NSTEMI Sick sinus syndrome S/p permanent pacemaker placement Nonrheumatic Aortic valve stenosis Congestive Heart Failure, EF 50-55% Hypertension Diabetes mellitus Hyperlipidemia History of CLL Left renal carcinoma S/p nephrectomy Bladder cancer status post surgical partial remover/tumor resection BPH Plan: Continue heparin drip Continue Lasix to 40 mg IV daily Resume home cardiac medications Continue 0.9 normal saline at 100 ml/hr Continue telemetry monitoring Repeat BMP early tomorrow morning Schedule patient for cardiac catheterization at 7:[address] Thomson as long as creatinine is improving. Nurse practitioner note has been reviewed, I agree with documented findings and plan of care. Patient was seen and examined. Objective - Vital Signs Vital signs: Vital Signs Temp 98.0 F 10/31/24 04:00 Pulse 78 10/31/24 09:26 Resp 19 10/31/24 04:00 BP 111/64 10/31/24 04:00 Pulse Ox 94 L 10/31/24 09:28 FiO2 Intake & Output 10/30/24 10/31/24 10/31/24 18:59 06:59 18:59 Intake Total 360 210.236 Output Total 2800 900 Balance -2440 -689.764 Weight 73.6 kg Intake: Intake, IV Titration 210.236 Amount Heparin Sod,Pork in 0.45% 210.236 NaCl 25,000 unit In 0.45 % NaCl 1 250ml.bag @ 12 UNITS/KG/HR 9.689 mls/hr IV .Q24H [facility] Rx#: [id number] Oral 360 Output: Urine 2800 900 Other: Voiding Method Indwelling Catheter Indwelling Catheter # Voids 1 - Labs CBC & Chem 7: 10/31/24 06:16 10/31/24 06:16 Labs: Abnormal Lab Results - Last 24 Hours (Table) 10/30/24 10/30/24 10/31/24 Range/Units 16:30 19:55 06:08 RBC (4.40-5.60) 10*6/uL Hgb (13.0-17.0) g/dL Hct (39.6-50.0) % APTT (22.0-30.0) sec Sodium (137-145) mmol/L BUN (9-20) mg/dL Creatinine (0.66-1.25) mg/dL Glucose (74-99) mg/dL POC Glucose (mg/dL) 183 H 136 H 118 H (70-110) mg/dL AST (17-59) U/L Total Protein (6.3-8.2) g/dL Albumin (3.5-5.0) g/dL 10/31/24 10/31/24 10/31/24 Range/Units 06:16 06:16 06:16 RBC 3.93 L (4.40-5.60) 10*6/uL Hgb 12.3 L (13.0-17.0) g/dL Hct 36.6 L (39.6-50.0) % APTT 51.1 H (22.0-30.0) sec Sodium 135 L (137-145) mmol/L BUN 40 H (9-20) mg/dL Creatinine 1.26 H (0.66-1.25) mg/dL Glucose 106 H (74-99) mg/dL POC Glucose (mg/dL) (70-110) mg/dL AST 61 H (17-59) U/L Total Protein 5.6 L (6.3-8.2) g/dL Albumin 2.8 L (3.5-5.0) g/dL
[2024-10-31 16:37] LABS: Glucose,Whole Blood 141 mg/dL (70-110)
[2024-10-31 20:13] LABS: Glucose,Whole Blood 135 mg/dL (70-110)
[2024-11-01] MEDS: ASPIRIN 325 MG TAB PO ONE (05:11)
[2024-11-01] MEDS: ATORVASTATIN 80 MG TAB PO ONE (05:12)
[2024-11-01 05:58] LABS: HCT 37.1 % (39.6-50.0); HGB 12.5 g/dL (13.0-17.0); MCH 31.6 pg (27.0-32.0); MCHC 33.7 g/dL (32.0-37.0); MCV 93.7 fL (80.0-97.0); Platelet Count 160 10*3/uL (140-440); RBC 3.96 10*6/uL (4.40-5.60); RDW 14.8 % (11.5-14.5); WBC 7.97 10*3/uL (4.50-10.00)
[2024-11-01 06:13] LABS: Glucose,Whole Blood 101 mg/dL (70-110)
[2024-11-01 06:48] LABS: African American GFR (CKD) 53 (>60 ml/min/1.73 sqM); Anion Gap 7 mmol/L; Blood Urea Nitrogen 38 mg/dL (9-20); Calcium 8.6 mg/dL (8.4-10.2); Carbon Dioxide 26 mmol/L (22-30); Chloride 101 mmol/L (98-107); Glucose 98 mg/dL (74-99); Magnesium 1.9 mg/dL (1.6-2.3); Non-African American GFR(CKD) 46 (>60 ml/min/1.73 sqM); Sodium 134 mmol/L (137-145)
[2024-11-01 06:55] LABS: Band Neutrophils % 6 %; Lymphocytes # (M) 5.26 k/uL (1.0-4.8); Neutrophils # (M) 2.31 k/uL (1.3-7.7); Neutrophils % (M) 23 %; Nucleated Red Blood Cells 0 /100 WBC (0-0); Total Cells Counted 100
[2024-11-01] MEDS: IV FLUID CONTINUATION 1,000 ML IV ONE (07:52)
[2024-11-01] MEDS: fentaNYL (PF) 50 MCG/ML 2 ML AMP IVP ONE (07:59)
[2024-11-01] MEDS: LIDOCAINE 1% INJ 10MG/ML (20 ML MDV) SQ ONE (07:59)
[2024-11-01] MEDS: MIDAZOLAM 2 MG/2 ML VIAL IVP ONE (08:00)
[2024-11-01] MEDS: HEPARIN SODIUM,PORCINE 10,000 UNIT in SODIUM CHLORIDE 0.9% 1,000 ML IRRIGATION PRN (08:01)
[2024-11-01] MEDS: HEPARIN SODIUM,PORCINE (1 ML) 2,500 UNIT in SODIUM CHLORIDE 0.9% 250 ML IRRIGATION PRN (08:01)
[2024-11-01] MEDS: VERAPAMIL SYRINGE (5 MG/10 ML) INTRAARTER ONE (08:09)
[2024-11-01] MEDS: IOPAMIDOL-370 100ML BTL INJ ONE (08:15)
[2024-11-01] MEDS: PANTOPRAZOLE 40 MG/10 ML VIAL IVP SCH (08:41)
[2024-11-01 11:43] LABS: Glucose,Whole Blood 141 mg/dL (70-110)
--- NOTE | 2024-11-01 12:51 | P.PN ---
Subjective Progress Note Date: 11/01/24 Hospital course: Patient is a pleasant 84-year-old male with a past medical history of CAD, sick sinus syndrome status post pacemaker placement, hypertension, hyperlipidemia, type 2 diabetes mellitus, bladder cancer status post surgical partial removal/tumor resection, BPH and leukemia. Patient was transferred to our facility from [facility] secondary to concerns of NSTEMI. Patient arrived to our facility on heparin infusion however transfer records were not available at time of arrival. Upon arrival to our facility, patient was transferred to room 359. Vital signs on arrival show blood pressure 147/75, heart rate 65, respiratory rate 16, temp 98.3 F, and SpO2 of 95% on 3 L. Labs were completed and reviewed. CBC unremarkable. Coagulation profile showing a subtherapeutic PTT of 34.8 with goal therapeutic range of 45 to 79 seconds. BMP showing sodium of 131, chloride of 95, BUN 46, creatinine 1.48, and GFR 42. Blood glucose was 101.Troponin 2.340. proBNP 7310. EKG completed showing sinus bradycardia at 54 bpm. Chest x-ray completed showing mild pulmonary edema. Patient admitted under our services with consultation to cardiology.Echocardiogram revealed a preserved EF of 55 to 60% with moderate aortic stenosis, mild mitral and t ricuspid regurgitation, and pacer wire appropriately in place in right ventricle. Physical exam: Patient seen and evaluated at the bedside. Patient reports feeling well this morning. He reports improvement of shortness of breath and currently denies having any chest pain or additional complaints at this time. TR band in place to right wrist, mild bruising noted beneath but no active bleeding. Vital signs reviewed and stable. General: Nontoxic, no distress and appears stated age. Derm: Skin warm and dry, normal coloration for ethnicity. Head: Atraumatic, normocephalic and symmetric. Eyes: EOM's intact, no lid lag, and anicteric sclera Mouth: no lip lesions, mucus membranes moist Cardiovascular: regular rate and rhythm with normal S1S2, soft systolic murmur, positive posterior tibial pulses bilaterally, and cap refill < 2 seconds. Lungs: Respirations even, regular, and unlabored on 2 L O2 via nasal cannula. Lungs slightly diminished breath soft basilar crackles worse on left, no rhonchi, no rales, no wheezing, and no accessory muscle usage. Abdominal: soft, nontender to palpation, no guarding, no appreciable organomegaly. Bennett catheter in place Ext: ROM intact. No gross muscle atrophy, scant lower extremity edema, no contractures Neuro: Speech clear, face symmetrical and CN II-XII grossly intact with no noted focal neuro deficits Psych: Alert and oriented to person, place, time, and situation. Appropriate and pleasant affect. Assessment and Plan of Care: NSTEMI Mild diastolic CHF exacerbation Melanotic stool x 1 episode Sick sinus syndrome status post pacemaker placement CAD Hypertension Hyperlipidemia -Cardiology following and discussed plan of care with cardiac EVENT LIGHTING SPECIALIST and tomography technologist. Patient underwent heart catheterization this morning, no stent placed. Discussed with cardiology we will monitor patient an additional 24 hours with plans for discharge tomorrow morning if hemoglobin remains stable. -Telemetry monitoring -Heparin infusion was discontinued this morning after patient reported 1 episode of melanotic stool. Fecal occult was completed positive. Hemoglobin currently stable at 12.5. Will repeat hemoglobin this evening and again tomorrow morning. -Continue IV Lasix 40 mg IVP daily with close monitoring of I's and O's. -Troponin 2.340. proBNP 7310 -Cardiac diet, NPO at midnight -Aspirin 81 mg daily, atorvastatin 40 mg nightly, amlodipine 2.5 mg daily, metoprolol 12.5 mg twice daily with parameters placed to hold for heart rate less than 60. -Lipid profile with a.m. labs. -Echocardiogram revealed a preserved EF of 55 to 60% with moderate aortic stenosis, mild mitral and tricuspid regurgitation, and pacer wire appropriately in place in right ventricle. Acute kidney injury, possible underlying chronic kidney disease - Patient requiring IV Lasix, Cardiology also continuing patient on gentle IV fluids with 0.9% NS at 100 cc/hour. We will monitor renal function closely with repeat AM labs and avoid additional nephrotoxic medications. Type II zuo-ywtbsft-loysymymb diabetes mellitus -Hemoglobin A1c 5.8%. Bladder cancer status post surgical partial remover/tumor resection BPH -Continue Proscar 5 mg nightly and Flomax 0.8 mg nightly. Continue Bennett catheter pending follow-up outpatient with urology. Data and imaging reviewed: -Morning labs reviewed. CBC showing stable normocytic anemia with hemoglobin of 12.5. BMP showing BUN of 38, creatinine 1.39, GFR 46. Blood glucose was 98. Magnesium 1.9. Fecal occult was positive -Echocardiogram revealed a preserved EF of 55 to 60% with moderate aortic stenosis, mild mitral and tricuspid regurgitation, and pacer wire appropriately in place in right ventricle. -Vital signs reviewed. 118/72, heart rate 57, respiratory rate 16, temp 97.9 F, and SpO2 of 94% on room air CODE STATUS: Full code DVT prophylaxis: SCDs Discussed with: Patient, cardiology EVENT LIGHTING SPECIALIST, tomography technologist and RN Anticipated discharge date: Pending clinical course, likely tomorrow if hemoglobin stable. Anticipated discharge place: Pending clinical course, likely home Patient was seen independently by Nurse Pracitioner. This document was prepared using [employer] dictation software. Please allow for errors in mobile heavy equipment mechanic, while rare they do occur. Rainer Grace, GIDEON rendered care for this patient independently, reviewed the findings and plan as documented in the note above and agree with plan. I did not physically speak with or examine the patient on this date. Objective - Vital Signs Vital signs: Vital Signs Temp 97.8 F 11/01/24 08:06 Pulse 58 L 11/01/24 04:00 Resp 16 11/01/24 08:06 BP 101/57 11/01/24 08:06 Pulse Ox 92 L 11/01/24 08:06 FiO2 Intake & Output 10/31/24 11/01/24 11/01/24 18:59 06:59 18:59 Intake Total 610 240 100 Output Total 3450 800 Balance -2840 -560 100 Weight 73.8 kg Intake: IV 100 Intake, IV Titration 250 Amount Heparin Sod,Pork in 0.45% 250 NaCl 25,000 unit In 0.45 % NaCl 1 250ml.bag @ 12 UNITS/KG/HR 9.689 mls/hr IV .Q24H [facility] Rx#: [id number] Oral 360 240 Output: Urine 3450 800 Other: Voiding Method Indwelling Catheter Indwelling Catheter # Bowel Movements 1 - Labs CBC & Chem 7: 11/01/24 05:30 11/01/24 05:30 Labs: Abnormal Lab Results - Last 24 Hours (Table) 10/31/24 10/31/24 10/31/24 Range/Units 06:16 11:35 16:36 RBC (4.40-5.60) 10*6/uL Hgb (13.0-17.0) g/dL Hct (39.6-50.0) % Lymphocytes # (Manual) (1.0-4.8) k/uL Sodium (137-145) mmol/L BUN (9-20) mg/dL Creatinine (0.66-1.25) mg/dL POC Glucose (mg/dL) 127 H 141 H (70-110) mg/dL HDL Cholesterol 28.20 L (40.00-60.00) mg/dL 10/31/24 11/01/24 11/01/24 Range/Units 20:11 05:30 05:30 RBC 3.96 L (4.40-5.60) 10*6/uL Hgb 12.5 L (13.0-17.0) g/dL Hct 37.1 L (39.6-50.0) % Lymphocytes # (Manual) 5.26 H (1.0-4.8) k/uL Sodium 134 L (137-145) mmol/L BUN 38 H (9-20) mg/dL Creatinine 1.39 H (0.66-1.25) mg/dL POC Glucose (mg/dL) 135 H (70-110) mg/dL HDL Cholesterol (40.00-60.00) mg/dL
--- NOTE | 2024-11-01 13:40 | P.PN ---
Subjective Progress Note Date: 11/01/24 Requesting physician: Kacey Walker Reason for Consult (text): elevated troponins Chief complaint: Chest pain History of present illness: Patient is a 84 year old male with past medical history of diabetes mellitus, hyperlipidemia, hypertension presented with chest pain. Patient was hospitalized at [facility] on Tuesday with chest pain. Patient then had workup that showed hs-cTnT of 176 and he was transferred to our facility secondary to concerns of NSTEMI. The patient's slide fastener repairer requested transfer for continuity of care. Patient had echocardiogram done at [facility] on 10/27/24 that showed left ventricular systolic function is normal with EF 50 to 55%, left ventricular diastolic function is normal, mildly dilated right atrium, moderate aortic stenosis with mean gradient 21 mm Hg, mild MR, mild TR, mild pulmonary hypertension, small pericardial effusion near the right side of the heart, pacemaker visualized in the right ventricle. Patient also had a CT angio chest that did not show evidence of pulmonary embolism, no aortic aneurysm or dissection, showed diffuse lymphadenopathy which is nonspecific to the degree of lymphadenopathy may suggest a more systemic process such as lymphoma/lymphoproliferative disorder in the appropriate setting, it also showed vascular congestion and infectious superimposed airspace disease cannot be completely excluded. Patient has sick sinus syndrome and has a permanent pacemaker that was checked at the last office visit on 09/04/24 and was functioning normally. Patient had a Lexiscan stress test on 08/15/24 that showed normal myocardial perfusion and function and echocardiogram on 08/13/24 that showed normal LV systolic function with moderate to severe aortic stenosis, mild aortic regurgitation and mild to moderate mitral regurgitation. Denies fever, chills, cough, palpitations,nausea, vomiting, hematuria, dysuria, hematochezia, melena, headache, slurred speech, numbness, tingling, dizziness, lightheadedness, blurred vision, double vision. Vitals T 97.9 F, TN 57 bpm, RR 20, BP 108/59, saturation 93% on 2 L oxygen via nasal cannula EKG independently interpreted as sinus bradycardia, rate 54 bpm, QTc 406 ms Chest x-ray shows no acute cardiopulmonary disease/process Labs show WBC 6.46, hemoglobin 14.2, platelet count 177, INR 1.0, sodium 131, potassium 4.5, creatinine 1.48 Troponin I 2.340 10/31 Patient seen and examined. Patient has been maintained on heparin drip. Renal function is improving with BUN of 40 and creatinine 1.26. We decreased IV Lasix to daily and started him on IV fluids at 100 cc/h in preparation for cardiac catheterization. Blood pressure 119/69, heart rate 63, pulse ox 95% on 2 L nasal cannula. Echocardiogram reveals EF of 55-60, technically difficult study. Moderate aortic stenosis with mean gradient of 21 mmHg. Mild mitral and tricuspid regurgitation. Wire noted in the right ventricle. 11/01 Patient seen and examined. This morning, patient underwent left heart catheterization with Dr. Larry. Patient only had mild coronary artery disease with no obstructive disease. Plan is for patient to continue aspirin and statin. Patient's blood pressure is on the low side and Imdur will not be started. Patient was apparently taken off heparin because he had a stool for occult blood positive. He is scheduled for follow-up treatment for bladder cancer tomorrow which has been suggested to postpone until next week. Blood pressure 101/57, heart rate 58, pulse ox 92% on 2 L nasal cannula. Lab work today reveals hemoglobin 12.5, BUN 38 creatinine 1.39. Physical examination: Vital signs reviewed GENERAL: This is a 84 -year-old male in no acute distress HEENT: Head is atraumatic, normocephalic. Pupils equal, round. Sclerae is anicteric NECK: Supple, No JVD, No carotid bruit LUNGS: Clear to auscultation, No wheezes or rhonchi, No intercostal retractions HEART: Regular rate and rhythm, no murmur or gallop or rub ABDOMEN: Soft No tenderness EXTREMITIES: Left shoulder tenderness, No pedal edema, No calf tenderness. NEUROLOGICAL: Patient is awake and alert Assessment: NSTEMI Sick sinus syndrome S/p permanent pacemaker placement Nonrheumatic Aortic valve stenosis Congestive Heart Failure, EF 50-55% Hypertension Diabetes mellitus Hyperlipidemia History of CLL Left renal carcinoma S/p nephrectomy Bladder cancer status post surgical partial remover/tumor resection BPH Plan: Continue patient on aspirin 81 mg daily, atorvastatin 40 mg at bedtime, Lopressor 12.5 mg twice daily Continue patient on IV Lasix 40 mg daily Monitor KIRILL, daily weights, electrolytes and renal function Plan to monitor patient overnight and discharge home tomorrow Hold on starting patient on Imdur due to hypotension. Nurse practitioner note has been reviewed, I agree with documented findings and plan of care. Patient was seen and examined. Objective - Vital Signs Vital signs: Vital Signs Temp 97.9 F 11/01/24 11:41 Pulse 57 L 11/01/24 11:41 Resp 16 11/01/24 11:41 BP 118/72 11/01/24 11:41 Pulse Ox 94 L 11/01/24 11:41 FiO2 Intake & Output 10/31/24 11/01/24 11/01/24 18:59 06:59 18:59 Intake Total 610 240 441 Output Total 3450 800 1400 Balance -3646 -557 -058 Weight 73.8 kg Intake: IV 201 Intake, IV Titration 250 Amount Heparin Sod,Pork in 0.45% 250 NaCl 25,000 unit In 0.45 % NaCl 1 250ml.bag @ 12 UNITS/KG/HR 9.689 mls/hr IV .Q24H [facility] Rx#: [id number] Oral 360 240 240 Output: Urine 3450 800 1400 Other: Voiding Method Indwelling Catheter Indwelling Catheter Indwelling Catheter # Bowel Movements 1 - Labs CBC & Chem 7: 11/01/24 05:30 11/01/24 05:30 Labs: Abnormal Lab Results - Last 24 Hours (Table) 10/31/24 10/31/24 11/01/24 Range/Units 16:36 20:11 05:30 RBC 3.96 L (4.40-5.60) 10*6/uL Hgb 12.5 L (13.0-17.0) g/dL Hct 37.1 L (39.6-50.0) % Lymphocytes # (Manual) 5.26 H (1.0-4.8) k/uL Sodium (137-145) mmol/L BUN (9-20) mg/dL Creatinine (0.66-1.25) mg/dL POC Glucose (mg/dL) 141 H 135 H (70-110) mg/dL 11/01/24 11/01/24 Range/Units 05:30 11:42 RBC (4.40-5.60) 10*6/uL Hgb (13.0-17.0) g/dL Hct (39.6-50.0) % Lymphocytes # (Manual) (1.0-4.8) k/uL Sodium 134 L (137-145) mmol/L BUN 38 H (9-20) mg/dL Creatinine 1.39 H (0.66-1.25) mg/dL POC Glucose (mg/dL) 141 H (70-110) mg/dL
[2024-11-01 16:20] LABS: Glucose,Whole Blood 113 mg/dL (70-110)
[2024-11-01 18:37] LABS: HCT 42.1 % (39.6-50.0); HGB 13.9 g/dL (13.0-17.0); MCH 31.7 pg (27.0-32.0); MCV 95.9 fL (80.0-97.0); Mean Platelet Volume 10.2 fL (9.5-12.2); Platelet Count 193 10*3/uL (140-440); RBC 4.39 10*6/uL (4.40-5.60); RDW 14.9 % (11.5-14.5); WBC 11.68 10*3/uL (4.50-10.00)
[2024-11-01 20:03] LABS: Glucose,Whole Blood 123 mg/dL (70-110)
--- NOTE | 2024-11-01 20:29 | CC ---
CARDIAC CATHETERIZATION REPORT INDICATION: Acute tdp-HA-klbdoah elevation GA. PROCEDURE NOTE: After obtaining informed consent, left heart catheterization and coronary angiogram were performed via the right radial artery using standard Jesus Manuel catheters. The patient tolerated the procedure well without any obvious immediate complications. A TR band will be used for hemostasis. Total sedation time was 20 minutes. Right radial artery access was obtained using Seldinger technique. A 6-Sinhala sheath was placed. Catheters and wires were floated into the ascending aorta under fluoroscopic guidance. The patient tolerated the procedure well without any obvious immediate complications. FINDINGS: 1. Hemodynamics: Left ventricular end-diastolic pressure is 10 to 12 mm. There is no significant gradient across the aortic valve. 2. Left ventriculogram: Left ventriculogram is not performed. 3. Angiographic data: a.Right coronary artery: Right coronary artery is a large dominant vessel that shows mild nonobstructive disease. Left main coronary artery appears calcified but is free of significant stenosis. Divides into left anterior descending coronary artery and circumflex coronary artery. LAD shows mild nonobstructive plaque as does the circ. CONCLUSIONS: Mild nonobstructive disease. PLAN: The patient's management is going to be in the form of optimal medical therapy and risk factor modification. MMODL / IJN: [id number] /
[2024-11-02 06:07] LABS: Glucose,Whole Blood 112 mg/dL (70-110)
[2024-11-02 06:36] LABS: HCT 35.3 % (39.6-50.0); HGB 11.6 g/dL (13.0-17.0); MCH 30.8 pg (27.0-32.0); MCHC 32.9 g/dL (32.0-37.0); MCV 93.6 fL (80.0-97.0); Mean Platelet Volume 9.7 fL (9.5-12.2); Platelet Count 160 10*3/uL (140-440); RBC 3.77 10*6/uL (4.40-5.60); RDW 14.9 % (11.5-14.5); WBC 10.46 10*3/uL (4.50-10.00)
[2024-11-02 06:54] LABS: African American GFR (CKD) 56 (>60 ml/min/1.73 sqM); Anion Gap 5 mmol/L; Blood Urea Nitrogen 38 mg/dL (9-20); Calcium 8.8 mg/dL (8.4-10.2); Carbon Dioxide 27 mmol/L (22-30); Chloride 103 mmol/L (98-107); Glucose 108 mg/dL (74-99); Magnesium 1.9 mg/dL (1.6-2.3); Non-African American GFR(CKD) 49 (>60 ml/min/1.73 sqM); Potassium 4.6 mmol/L (3.5-5.1); Sodium 135 mmol/L (137-145)
--- NOTE | 2024-11-02 09:41 | P.DS ---
Providers Date of admission: 10/29/24 22:01 Expected date of discharge: 11/02/24 Attending physician: Kacey Walker MD Consults: 10/29/24 23:48 Consult Physician Routine Consulting Provider: Henry Thomson Consult Reason/Comments: elevated troponins Do you want consulting provider notified?: Yes, Notify in am Primary care physician: SHAKIR Wei Hospital Course: Discharge Diagnosis: NSTEMI. Troponin 2.340. proBNP 7310. EKG completed showing sinus bradycardia at 54 bpm. Chest x-ray completed showing mild pulmonary edema. Patient admitted under our services with consultation to cardiology.Echocardiogram revealed a preserved EF of 55 to 60% with moderate aortic stenosis, mild mitral and tricuspid regurgitation, and pacer wire appropriately in place in right ventricle. lithographic artist on 11/01/24 patient had an isolated episode of melanotic stools. IV heparin was discontinued and patient had no further episodes of melena reported. Patient was taken for cardiac catheterization on 11/01/2024 which reported mild nonobstructive disease with purchasing manager recommending optimization of medical therapy. Cleared from cardiac perspective for discharge and is medically optimized for discharge at this time. He is free from any complaints of chest pain or shortness of breath and is maintaining SpO2 of 96% on room air. Patient is being discharged home on Lasix 40 mg daily in addition to aspirin 81 mg daily, rosuvastatin 10 mg daily, metoprolol 12.5 mg twice daily, and amlodipine 2.5 mg daily. Patient to follow-up outpatient with PCP in 1 to 2 days and with purchasing manager in 1 week Diastolic CHF exacerbation Melanotic stool x 1 episode Sick sinus syndrome status post pacemaker placement CAD Hypertension Hyperlipidemia Acute kidney injury, possible underlying chronic kidney disease - Patient requiring IV Lasix, Cardiology also continuing patient on gentle IV fluids with 0.9% NS at 100 cc/hour. We will monitor renal function closely with repeat AM labs and avoid additional nephrotoxic medications. Type II oql-wotjskb-feaxtudky diabetes mellitus. Hemoglobin A1c 5.8%.. Continue to follow heart healthy and carb consistent diet. Bladder cancer status post surgical partial remover/tumor resection with continued urinary retention. Continue Bennett catheter pending your follow-up outpatient with urology. BPH. Continue Proscar 5 mg nightly and Flomax 0.8 mg nightly. Hospital course: Patient is a pleasant 84-year-old male with a past medical history of CAD, sick sinus syndrome status post pacemaker placement, hypertension, hyperlipidemia, type 2 diabetes mellitus, bladder cancer status post surgical partial removal/tumor resection, BPH and leukemia. Patient was transferred to our facility from [facility] secondary to concerns of NSTEMI. Patient arrived to our facility on heparin infusion however transfer records were not available at time of arrival. Upon arrival to our facility, patient was transferred to room 359. Vital signs on arrival show blood pressure 147/75, heart rate 65, re spiratory rate 16, temp 98.3 F, and SpO2 of 95% on 3 L. Labs were completed and reviewed. CBC unremarkable. Coagulation profile showing a subtherapeutic PTT of 34.8 with goal therapeutic range of 45 to 79 seconds. BMP showing sodium of 131, chloride of 95, BUN 46, creatinine 1.48, and GFR 42. Blood glucose was 101.Troponin 2.340. proBNP 7310. EKG completed showing sinus bradycardia at 54 bpm. Chest x-ray completed showing mild pulmonary edema. Patient admitted under our services with consultation to cardiology.Echocardiogram revealed a preserved EF of 55 to 60% with moderate aortic stenosis, mild mitral and tricuspid regurgitation, and pacer wire appropriately in place in right ventricle. lithographic artist on 11/01/24 patient had an isolated episode of melanotic stools. IV heparin was discontinued and patient had no further episodes of melena reported. Patient was taken for cardiac catheterization on 11/01/2024 which reported mild nonobstructive disease with purchasing manager recomme nding optimization of medical therapy. Cleared from cardiac perspective for discharge and is medically optimized for discharge at this time. He is free from any complaints of chest pain or shortness of breath and is maintaining SpO2 of 96% on room air. Patient is being discharged home on Lasix 40 mg daily in addition to aspirin 81 mg daily, rosuvastatin 10 mg daily, metoprolol 12.5 mg twice daily, and amlodipine 2.5 mg daily. Patient to follow-up outpatient with PCP in 1 to 2 days and with purchasing manager in 1 week Physical exam: Vital signs reviewed and stable. General: Nontoxic, no distress and appears stated age. Derm: Skin warm and dry, normal coloration for ethnicity. Head: Atraumatic, normocephalic and symmetric. Eyes: EOM's intact, no lid lag, and anicteric sclera Mouth: no lip lesions, mucus membranes moist Cardiovascular: regular rate and rhythm with normal S1S2, soft systolic murmur, positive posterior tibial pulses bilaterally, and cap refill < 2 seconds. Lungs: Respirations even, regular, and unlabored on 2 L O2 via nasal cannula. Lungs slightly diminished breath soft basilar crackles worse on left, no rhonchi, no rales, no wheezing, and no accessory muscle usage. Abdominal: soft, nontender to palpation, no guarding, no appreciable organomegaly. Bennett catheter in place Ext: ROM intact. No gross muscle atrophy, scant lower extremity edema, no contractures Neuro: Speech clear, face symmetrical and CN II-XII grossly intact with no noted focal neuro deficits Psych: Alert and oriented to person, place, time, and situation. Appropriate and pleasant affect. A total of 35 minutes of time were spent preparing this complex discharge summary. Pt was discharged on 11/02/24 at 9:39 AM Patient was seen independently by Nurse Practitioner. This document was prepared using [employer] dictation software. Please allow for errors in field artillery officer while rare they do occur. Rainer Grace NP rendered care for this patient independently, reviewed the findings and plan as documented in the note above. I did not physically speak with or examine the patient on this date. Patient Condition at Discharge: Stable Plan - Discharge Summary Discharge Rx Participant: No New Discharge Prescriptions: New Furosemide [Lasix] 40 mg PO DAILY 30 Days #30 tab Continue Finasteride [Proscar] 5 mg PO HS Cyanocobalamin (Vitamin B-12) [Vitamin B-12] 1,000 mcg PO DAILY Aspirin 81 mg PO DAILY Tamsulosin HCl [Flomax] 0.8 mg PO HS Tiotropium Br/Olodaterol HCl [Stiolto Respimat Inhaler (60)] 2 puff INHALATION RT-DAILY Rosuvastatin [Crestor] 10 mg PO DAILY Mineral Oil/Petrolatum,White [Refresh P.m. Ointment] 1 applic BOTH EYES BID PRN PRN Reason: Dry Eye(S) Metoprolol Tartrate [Lopressor] 12.5 mg PO BID amLODIPine [Norvasc] 2.5 mg PO DAILY Discharge Medication List Aspirin 81 mg PO DAILY 10/30/24 [History] Cyanocobalamin (Vitamin B-12) [Vitamin B-12] 1,000 mcg PO DAILY 10/30/24 [History] Finasteride [Proscar] 5 mg PO HS 10/30/24 [History] Metoprolol Tartrate [Lopressor] 12.5 mg PO BID 10/30/24 [History] Mineral Oil/Petrolatum,White [Refresh P.m. Ointment] 1 applic BOTH EYES BID PRN 10/30/24 [History] Rosuvastatin [Crestor] 10 mg PO DAILY 10/30/24 [History] Tamsulosin HCl [Flomax] 0.8 mg PO HS 10/30/24 [History] Tiotropium Br/Olodaterol HCl [Stiolto Respimat Inhaler (60)] 2 puff INHALATION RT-DAILY 10/30/24 [History] amLODIPine [Norvasc] 2.5 mg PO DAILY 10/30/24 [History] Furosemide [Lasix] 40 mg PO DAILY 30 Days #30 tab 11/02/24 [Rx] Follow up Appointment(s)/Referral(s): [facility] [NON-STAFF] - 1-2 Days (need to call and schedule first available appointment) Henry Thomson MD [STAFF PHYSICIAN] - 1 Week Patient Instructions/Handouts: Heart Failure (DC) Activity/Diet/Wound Care/Special Instructions: Activity: As tolerated. Take breaks as needed. Diet: Heart healthy and carb consistent diet. Avoid salts, or foods with hidden salts such as canned or boxed foods and frozen dinners. Extra salt makes your heart work harder and traps the fluid in your body for longer. Special Instructions: Take all of your medications as directed and remember to keep all of your doctor's appointments and follow-up as needed. As discussed you are being discharged home with your Bennett catheter in place un til outpatient follow-up as scheduled with your urologist. Thank you for allowing us to participate in your care, it was truly a pleasure having you for our patient!!! Discharge Disposition: HOME SELF-CARE
[2024-11-02] MEDS: IPRATROPIUM-ALBUTEROL 3 ML NEB INHALATION PRN (09:44)
--- NOTE | 2024-11-02 10:57 | P.PN ---
Subjective Progress Note Date: 11/02/24 Requesting physician: Kacey Walker Reason for Consult (text): elevated troponins Chief complaint: Chest pain History of present illness: Patient is a 84 year old male with past medical history of diabetes mellitus, hyperlipidemia, hypertension presented with chest pain. Patient was hospitalized at [facility] on Tuesday with chest pain. Patient then had workup that showed hs-cTnT of 176 and he was transferred to our facility secondary to concerns of NSTEMI. 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 Patient had echocardiogram done at [facility] on 10/27/24 that showed left ventricular systolic function is normal with EF 50 to 55%, left ventricular diastolic function is normal, mildly dilated right atrium, moderate aortic stenosis with mean gradient 21 mm Hg, mild MR, mild TR, mild pulmonary hypertension, small pericardial effusion near the right side of the heart, pacemaker visualized in the right ventricle. Patient also had a CT angio chest that did not show evidence of pulmonary embolism, no aortic aneurysm or dissection, showed diffuse lymphadenopathy which is nonspecific to the degree of lymphadenopathy may suggest a more systemic process such as lymphoma/lymphoproliferative disorder in the appropriate setting, it also showed vascular congestion and infectious superimposed airspace disease cannot be completely excluded. Patient has sick sinus syndrome and has a permanent pacemaker that was checked at the last office visit on 09/04/24 and was functioning normally. Patient had a Lexiscan stress test on 08/15/24 that showed normal myocardial perfusion and function and echocardiogram on 08/13/24 that showed normal LV systolic function with moderate to severe aortic stenosis, mild aortic regurgitation and mild to moderate mitral regurgitation. Denies fever, chills, cough, palpitations,nausea, vomiting, hematuria, dysuria, hematochezia, melena, headache, slurred speech, numbness, tingling, dizziness, lightheadedness, blurred vision, double vision. Vitals T 97.9 F, AZ 57 bpm, RR 20, BP 108/59, saturation 93% on 2 L oxygen via nasal cannula EKG independently interpreted as sinus bradycardia, rate 54 bpm, QTc 406 ms Chest x-ray shows no acute cardiopulmonary disease/process Labs show WBC 6.46, hemoglobin 14.2, platelet count 177, INR 1.0, sodium 131, potassium 4.5, creatinine 1.48 Troponin I 2.340 10/31 Patient seen and examined. Patient has been maintained on heparin drip. Renal function is improving with BUN of 40 and creatinine 1.26. We decreased IV Lasix to daily and started him on IV fluids at 100 cc/h in preparation for cardiac catheterization. Blood pressure 119/69, heart rate 63, pulse ox 95% on 2 L nasal cannula. Echocardiogram reveals EF of 55-60, technically difficult study. Moderate aortic stenosis with mean gradient of 21 mmHg. Mild mitral and tricuspid regurgitation. Wire noted in the right ventricle. 11/01 Patient seen and examined. This morning, patient underwent left heart catheterization with Dr. Larry. Patient only had mild coronary artery disease with no obstructive disease. Plan is for patient to continue aspirin and statin. Patient's blood pressure is on the low side and Imdur will not be started. Patient was apparently taken off heparin because he had a stool for occult blood positive. He is scheduled for follow-up treatment for bladder cancer tomorrow which has been suggested to postpone until next week. Blood pressure 101/57, heart rate 58, pulse ox 92% on 2 L nasal cannula. Lab work today reveals hemoglobin 12.5, BUN 38 creatinine 1.39. 11/02 Patient seen and examined. Patient denies chest pain, chest pressure. He has been maintained on IV Lasix 40 mg daily. Blood pressure 119/65, heart rate in the 60s, pulse ox 96% on room air. Repeat blood work reveals BUN 38, creatinine 1.32, potassium 4.6, hemoglobin 9.6. Physical examination: Vital signs reviewed GENERAL: This is a 84 -year-old male in no acute distress HEENT: Head is atraumatic, normocephalic. Pupils equal, round. Sclerae is anicteric NECK: Supple, No JVD, No carotid bruit LUNGS: Clear to auscultation, No wheezes or rhonchi, No intercostal retractions HEART: Regular rate and rhythm, no murmur or gallop or rub ABDOMEN: Soft No tenderness EXTREMITIES: Left shoulder tenderness, No pedal edema, No calf tenderness. NEUROLOGICAL: Patient is awake and alert Assessment: NSTEMI Sick sinus syndrome S/p permanent pacemaker placement Nonrheumatic Aortic valve stenosis Congestive Heart Failure, EF 50-55% Hypertension Diabetes mellitus Hyperlipidemia History of CLL Left renal carcinoma S/p nephrectomy Bladder cancer status post surgical partial remover/tumor resection BPH Plan: Continue patient on aspirin 81 mg daily, atorvastatin 40 mg at bedtime, Lopressor 12.5 mg twice daily Transition IV Lasix to oral Lasix 40 mg daily Do not start Imdur at this time Patient is cleared for discharge from cardiology and will follow-up in the office with Dr. Elvia Thomson in 1 to 2 weeks. Nurse practitioner note has been reviewed, I agree with documented findings and plan of care. Patient was seen and examined. Objective - Vital Signs Vital signs: Vital Signs Temp 98.2 F 11/02/24 07:09 Pulse 65 11/02/24 09:55 Resp 17 11/02/24 07:09 BP 119/65 11/02/24 07:09 Pulse Ox 96 11/02/24 09:44 FiO2 Intake & Output 11/01/24 11/02/24 11/02/24 18:59 06:59 18:59 Intake Total 921 240 320 Output Total 2600 600 Balance -1679 -360 320 Weight 72.8 kg Intake: IV 201 Oral 720 240 320 Output: Urine 2600 600 Other: Voiding Method Indwelling Catheter Indwelling Catheter # Bowel Movements 1 - Labs CBC & Chem 7: 11/02/24 06:15 11/02/24 06:15 Labs: Abnormal Lab Results - Last 24 Hours (Table) 11/01/24 11/01/24 11/01/24 Range/Units 11:42 16:19 18:20 WBC 11.68 H (4.50-10.00) 10*3/uL RBC 4.39 L (4.40-5.60) 10*6/uL Hgb (13.0-17.0) g/dL Hct (39.6-50.0) % Sodium (137-145) mmol/L BUN (9-20) mg/dL Creatinine (0.66-1.25) mg/dL Glucose (74-99) mg/dL POC Glucose (mg/dL) 141 H 113 H (70-110) mg/dL 11/01/24 11/02/24 11/02/24 Range/Units 20:01 06:05 06:15 WBC 10.46 H (4.50-10.00) 10*3/uL RBC 3.77 L (4.40-5.60) 10*6/uL Hgb 11.6 L (13.0-17.0) g/dL Hct 35.3 L (39.6-50.0) % Sodium (137-145) mmol/L BUN (9-20) mg/dL Creatinine (0.66-1.25) mg/dL Glucose (74-99) mg/dL POC Glucose (mg/dL) 123 H 112 H (70-110) mg/dL // Range/Units 06:15 WBC (4.50-10.00) 10*3/uL RBC (4.40-5.60) 10*6/uL Hgb (13.0-17.0) g/dL Hct (39.6-50.0) % Sodium 135 L (137-145) mmol/L BUN 38 H (9-20) mg/dL Creatinine 1.32 H (0.66-1.25) mg/dL Glucose 108 H (74-99) mg/dL POC Glucose (mg/dL) (70-110) mg/dL
[2024-11-02 11:30] LABS: Glucose,Whole Blood 177 mg/dL (70-110)
[2024-11-02 11:59] VITALS: BP 100/48; PULSE 62; RESP 16; TEMP 97.8
[2024-11-03] MEDS ORDERED: FUROSEMIDE 40 MG TAB PO SCH (09:00)
== END 2024-11-02 15:01 | disposition home or self-care (01) | DRG 280 ==
LOC: 3SCARD 22:01
PROVIDERS: ADMIT Internal Medicine; ATTEND Internal Medicine
PROC: B2111ZZ Fluoroscopy of Multiple Coronary Arteries using Low Osmolar Contrast (ICD-10-PCS; principal; 2024-11-02)
PROC: 4A023N7 Measurement of Cardiac Sampling and Pressure, Left Heart, Percutaneous Approach (ICD-10-PCS; principal; 2024-11-02)
DX: I21.4 Non-ST elevation (NSTEMI) myocardial infarction (principal); I50.33 Acute on chronic diastolic (congestive) heart failure; I31.39 Other pericardial effusion (noninflammatory); C64.2 Malignant neoplasm of left kidney, except renal pelvis; C67.9 Malignant neoplasm of bladder, unspecified; I13.0 Hypertensive heart and chronic kidney disease with heart failure and stage 1 through stage 4 chronic kidney disease, or unspecified chronic kidney disease; E11.22 Type 2 diabetes mellitus with diabetic chronic kidney disease; I27.20 Pulmonary hypertension, unspecified; I35.0 Nonrheumatic aortic (valve) stenosis; N18.9 Chronic kidney disease, unspecified; N17.9 Acute kidney failure, unspecified; I49.5 Sick sinus syndrome; H91.90 Unspecified hearing loss, unspecified ear; I25.10 Atherosclerotic heart disease of native coronary artery without angina pectoris; I25.2 Old myocardial infarction; I08.3 Combined rheumatic disorders of mitral, aortic and tricuspid valves; N40.0 Benign prostatic hyperplasia without lower urinary tract symptoms; E78.5 Hyperlipidemia, unspecified; Z95.0 Presence of cardiac pacemaker; Z90.5 Acquired absence of kidney; Z79.82 Long term (current) use of aspirin; Z79.84 Long term (current) use of oral hypoglycemic drugs; Z79.899 Other long term (current) drug therapy; Z85.6 Personal history of leukemia; Z85.828 Personal history of other malignant neoplasm of skin; Z87.891 Personal history of nicotine dependence
CPT/HCPCS: 71045; 80048; 80053; 80061; 82272; 83036; 83735; 83880; 84484; 85025; 85027; 85610; 85730; 93306; 93458; 94640; 94760